=== PATIENT | female | born 1955 | race Caucasian/White ===

== ENCOUNTER → 2017-08-16 | Outpatient (CLI) | payer OTHER ==
[~2017-08-16] MED LIST: ASPIRIN 81M81 MG/TA2 PO; CELEXA40 MG PO; DALIRESP500 MCG PO; IMODIUM 2MG CAPS2 MG PO; KLONOPIN 0.5MG0.5 MG PO; LEVAQUIN 5500 MG/TA1 PO; LIPITOR20 MG PO; NITROSTAT0.4 MG/TAB SL; PEPCID AC 10MG10 MG PO; PREDNISONE20 MG PO; PROAIR HFA0.09 MG/AC IH; TOPROL XL 25MG25 MG PO; TYLENOL ARTHRITIS PO; UNABLE; ZESTRIL2.5 MG PO
== END ==
LOC: BHSO 09:37
DX: F41.1 Generalized anxiety disorder (principal)

== ENCOUNTER → 2018-02-14 | Outpatient (CLI) | payer OTHER | LOC: BHSO 09:48 | DX: F33.42 Major depressive disorder, recurrent, in full remission (principal) | CPT/HCPCS: G0463 ==

== ENCOUNTER → 2018-04-19 | Outpatient (CLI) | payer OTHER | LOC: BHSO 10:12 | DX: F33.42 Major depressive disorder, recurrent, in full remission (principal) | CPT/HCPCS: G0463 ==

== ENCOUNTER → 2018-10-19 | Outpatient (CLI) | payer OTHER | LOC: BHSO 09:48 | DX: F41.1 Generalized anxiety disorder (principal) | CPT/HCPCS: G0463 ==

== ENCOUNTER 2019-01-02 09:00 | Emergency (ER) | payer OTHER ==
[~2019-01-02] VITALS: Ht 162.6 cm; Wt 54.5 kg
[2019-01-02 09:11] VITALS: TEMP 98.4
[2019-01-02 09:41] LABS: GRAN # 4.8 (1.4-6.5); GRAN % 76.1 % (42.2-75.2); HEMATOCRIT 41.1 % (37.0-47.0); HEMOGLOBIN 13.9 g/dl (12.5-16.0); LYMPH # 1.1 (1.2-3.4); LYMPH % 16.7 % (20.0-51.0); MEAN CELL VOLUME 93 fl (80.0-100.0); MEAN CORPUSCULAR HEMOGLOBIN 32 pg (27.0-31.0); MEAN CORPUSCULAR HGB CONC 34 g/dl (33.0-37.0); MEAN PLATELET VOLUME 10.1 fl (7.4-10.4); MONO # 0.4 (0.1-0.6); MONO % 6.7 % (1.7-9.3); PLATELET COUNT 146 K/mm3 (130-400); RED BLOOD COUNT 4.41 M/mm3 (4.10-5.30); REDCELL DISTRIBUTION WIDTH-CV 12.8 % (11.5-14.5)
[2019-01-02 09:49] LABS: ALANINE AMINOTRANSFERASE 16 U/L (9-52); ALBUMIN 4.3 gm/dL (3.5-5.0); ALKALINE PHOSPHATASE 57 U/L (50-136); ANION GAP 9 mmol/L (7-16); AST,SGOT 35 U/L (15-37); BILIRUBIN,TOTAL 0.2 mg/dL (0.0-1.0); BLOOD UREA NITROGEN 21 mg/dL (7-17); C-REACTIVE PROTEIN 1.9 mg/dL (0.0-0.9); CALCIUM 9.7 mg/dL (8.4-10.2); CARBON DIOXIDE 22 mmol/L (22-30); CHLORIDE 108 mmol/L (98-107); CREATININE, serum 0.79 mg/dL (0.52-1.25); GLUCOSE 142 mg/dL (74-106); POTASSIUM 4.7 mmol/L (3.4-5.0); SODIUM 139 mmol/L (137-145); TOTAL PROTEIN 7.7 gm/dL (6.4-8.2)
[2019-01-02 09:58] LABS: TROPONIN-I < 0.012 ng/mL (0.000-0.035)
[2019-01-02] MEDS ORDERED: PREDNISONE20 MG PO (14:24)
[2019-01-02] MEDS ORDERED: ZITHROMAX 250M250 MG PO (14:24)
--- NOTE | 2019-01-02 14:30 | NUR ---
ZAINAB met with patient and for 02 referral. Patient was provided with a choice form and chose via [facility]. ZAINAB faxed clinical information and order to [facility] and called. Patient has a follow up at [facility] tomorrow with PCP. No other needs at this time. Patient dc home with home 02 once [facility] brings tank to the er.
[2019-01-02 15:35] VITALS: BP 123/86; PULSE 102
== END 2019-01-02 15:35 | disposition home or self-care (01) ==
LOC: COL.ER 09:00
PROVIDERS: Physician Assistant
DX: J44.1 Chronic obstructive pulmonary disease with (acute) exacerbation (principal); F17.210 Nicotine dependence, cigarettes, uncomplicated; J44.9 Chronic obstructive pulmonary disease, unspecified; Z98.890 Other specified postprocedural states; Z85.3 Personal history of malignant neoplasm of breast
CPT/HCPCS: J7512

== ENCOUNTER → 2019-04-19 | Outpatient (CLI) | payer OTHER ==
[~2019-04-19] MED LIST changes: +ZITHROMAX 250M250 MG PO
== END ==
LOC: BHSO 10:01
DX: F41.1 Generalized anxiety disorder (principal)
CPT/HCPCS: G0463

== ENCOUNTER → 2019-10-17 | Outpatient (CLI) | payer OTHER | LOC: BHSO 10:07 | DX: F41.1 Generalized anxiety disorder (principal) | CPT/HCPCS: G0463 ==

== ENCOUNTER → 2019-12-13 | Outpatient (CLI) | payer OTHER | LOC: BHSO 10:50 | DX: F41.1 Generalized anxiety disorder (principal) | CPT/HCPCS: G0463 ==

== ENCOUNTER → 2020-06-18 | Outpatient (CLI) | payer OTHER | LOC: BHSO 10:37 | DX: F41.1 Generalized anxiety disorder (principal) | CPT/HCPCS: G0463 ==

== ENCOUNTER 2022-05-19 08:43 | Outpatient (CLI) | payer OTHER ==
--- NOTE | 2022-05-17 14:16 | NUR ---
LMOM WITH DATE, TIME AND INATRUCTIONS WITH CALL BACK NUMBER
[2022-05-19] VITALS (7 sets, daily range): BP systolic 117–145; BP diastolic 59–76; PULSE 80–88; TEMP 98.3
[~2022-05-19] VITALS: Ht 162.6 cm; Wt 57.0 kg
[2022-05-19] MEDS ORDERED: LIPITOR 40MG TA40 MG PO (09:38)
[2022-05-19] MEDS ORDERED: VITAMIN D31000 I1 PO (09:38)
[2022-05-19] MEDS ORDERED: ZESTRIL 5MG5 MG PO (09:39)
[2022-05-19] MEDS ORDERED: VENLAFAXINE225 MG PO (09:39)
[2022-05-19] MEDS ORDERED: STIOLTO RESPIMAT4 GM IH (09:40)
--- NOTE | 2022-05-19 10:55 | NUR ---
pt in CT scanner, ready for procedure
--- NOTE | 2022-05-19 11:05 | NUR ---
Dr here and procedure starated
--- NOTE | 2022-05-19 11:15 | NUR ---
fabián obtained and put in formulin, bandaid over site.
== END 2022-05-20 09:54 ==
LOC: COL.RAD 08:43
DX: M89.9 Disorder of bone, unspecified (principal); Z85.3 Personal history of malignant neoplasm of breast
CPT/HCPCS: 27406

== ENCOUNTER → 2022-06-01 | Outpatient (CLI) | payer OTHER ==
[~2022-06-01] MED LIST changes: +LIPITOR 40MG TA40 MG PO; +STIOLTO RESPIMAT4 GM IH; +VENLAFAXINE225 MG PO; +VITAMIN D31000 I1 PO; +ZESTRIL 5MG5 MG PO
== END ==
LOC: COL.CARD 10:41
DX: C50.919 Malignant neoplasm of unspecified site of unspecified female breast (principal)

== ENCOUNTER → 2022-06-21 | Outpatient (CLI) | payer OTHER | LOC: COL.CARD 13:25 | DX: C50.912 Malignant neoplasm of unspecified site of left female breast (principal) ==

== ENCOUNTER → 2022-07-05 | Outpatient (CLI) | payer OTHER | LOC: COL.CARD 10:36 | DX: C50.912 Malignant neoplasm of unspecified site of left female breast (principal) ==